=== PATIENT | male | born 1950 | race Caucasian/White ===

== ENCOUNTER 2018-06-08 16:07 | Observation (INO) ==
[2018-06-08] MEDS ORDERED: Nitroglycerin 0.4 MG TAB.SUBL SL ONE (16:11)
[2018-06-08] MEDS ORDERED: methylPREDNISolone 125 MG/2 ML VIAL IVP ONE (16:29)
[2018-06-08] MEDS ORDERED: Ipratropium/Albuterol Neb 3 ML IH ONE (16:29)
[2018-06-08 16:35] LABS: Basophils # 0.1 K/mcL (0.0-0.2); Basophils % 0.4 %; Eosinophils # 0.3 K/mcL (0.0-0.6); Eosinophils % 1.8 %; Hematocrit 45.5 % (37.5-50.1); Hemoglobin 16.3 g/dL (12.9-16.9); Immature Granulocytes % 0.5 % (0-4); Lymphocytes # 3.3 K/mcL (0.6-4.6); Lymphocytes % 21.5 %; Mean Corpuscular HGB Conc 35.8 g/dL (31.6-35.5); Mean Corpuscular Hemoglobin 36.1 pg (28.0-33.3); Mean Corpuscular Volume 100.9 fL (83.0-100.0); Monocytes # 2.1 K/mcL (0.0-1.3); Monocytes % 13.8 %; Neutrophils # 9.4 K/mcL (1.6-8.9); Platelet Count 150 K/mcL (140-400); Red Blood Count 4.51 M/mcL (4.19-5.50); Red Cell Distribution Width 14.4 % (11.5-14.5)
--- NOTE | 2018-06-08 16:37 | Emergency Department Note ---
Disposition Clinical Impression: Stable angina, COPD exacerbation, Hypoxia Chest pain Qualifiers: Chest pain type: chest pain on breathing Qualified Code(s): R07.1 - Chest pain on breathing Pneumonia Qualifiers: Pneumonia type: due to unspecified organism Laterality: right Lung location: upper lobe of lung Qualified Code(s): J18.1 - Lobar pneumonia, unspecified organism Disposition: Admitted As Inpatient Condition: Good Instructions: Angina (ED), Emphysema (ED), Community-acquired Pneumonia (ED), Chest Pain (ED) Referrals: Bonita Carter [Primary Care Provider] - Forms: ED Satisfaction Letter Time of Disposition: 17:00 (Dr Prasad accepted him for admission) Chest Pain HPI - General Chief Complaint: ED Chest Pain Stated Complaint: Chest pain Time Seen by Provider: 06/08/18 16:11 Source: patient, EMS, other Mode of arrival: ambulatory Limitations: no limitations Vital Signs Reviewed: Yes Nursing Notes Reviewed: Yes - History of Present Illness HPI Narrative: Patient is a pleasant 67-year-old male with past medical history significant for HTN, Dyslipidemia, tobacco abuse and COPD who is presenting to [facility] Emergency Room with a chief complaint off substernal and right-sided chest pain in the past 12 hours. Pain is rated 8-9 out of 10 and currently 4 out of 10 sharp heavy bleeding, and does not radiate to his arms. Patient has shortness of breath. He took 4 baby aspirin and went to the urgent care. Received call from the urgent care regarding his chest pain. EKG performed at the urgent care and revealed the PVC and no ST-T wave elevation or depression. Patient admits skmoking [id number] years and drink ETOH. Also denies street drugs and viagra. Patient denies any fever, chills or night sweats. Pt also denies any eye pain or visual disturbances. There is no sore throat, nasal drainages or facial congestion. There is no chest pain, palpitations or racing heart. Pt also denies any shortness of breath, cough or chest congestion. There is no abdominal pain, nausea, vomiting or diarrhea. There is no urgency, frequency or dysuria. There is no muskulo-skeletal pain, arthralgia or back pain. Patient also denies any rash, edema or pruritus. There is no neurological manifestations, no headache, no vertigo or weakness. The patient also denies any anxiety, depression, hallucinations and has no homicidal or suicidal ideations. There is no polyuria, polydipsia or recent weight change. There is no easy bruising or bleeding. Review of other systems is otherwise negative except above. Pt complaint: chest pain Onset (ago): hour(s) (12) Duration: gradually worsening Onset: during rest Pain Location: substernal, right chest Severity: moderate Severity scale (1-10): 4 Quality: heaviness - Related Data Home Medications Medication Instructions Recorded Confirmed Aspirin [Lo-Dose Aspirin EC] 81 mg PO DAILY 06/08/18 06/08/18 Atorvastatin [Lipitor] 20 mg PO HS 06/08/18 06/08/18 Folic Acid 1 mg PO DAILY 06/08/18 06/08/18 Leflunomide [Arava] 10 mg PO DAILY 06/08/18 06/08/18 Lisinopril [Zestril] 20 mg PO DAILY 06/08/18 06/08/18 Methotrexate [Otrexup] 7.5 mg PO QWEEK 06/08/18 06/08/18 Allergies Allergy/AdvReac Type Severity Reaction Status Date / Time No Known Allergies Allergy Verified 06/08/18 15:53 All systems ED: reviewed and negative except as stated. Review of Systems: As Per HPI Constitutional: Denies: fever, chills, weakness Eyes: Denies: eye pain, eye discharge ENT ED: Denies: ear pain, throat pain Cardiovascular: Reports: chest pain. Denies: palpitations, dyspnea on exertion Respiratory: Reports: dyspnea. Denies: cough, wheezes Gastrointestinal: Denies: abdominal pain, nausea, vomiting Genitourinary: Denies: urgency, dysuria, frequency Musculoskeletal: Denies: back pain, neck pain, joint swelling Chest Pain PMH - Past Medical History Medical history: Reports: arthritis, COPD, RA Psychiatric history: Reports: anxiety - Social History Smoking Status: Current every day smoker Alcohol use: Reports: heavy Drug use: Reports: marijuana Physical Exam - General Limitations: no limitations General appearance: alert, in no apparent distress - Head Head exam: atraumatic, normocephalic, normal inspection - Eye Eye exam: Present: normal appearance, PERRL, EOMI - Expanded Eye Exam Pupils: Left: reactive - ENT ENT exam: normal exam, normal oropharynx, mucous membranes moist - Expanded ENT Exam External ear exam: Present: normal external inspection Mouth exam: Present: normal external inspection Teeth exam: Present: normal inspection Throat exam: Present: normal inspection - Neck Neck exam: Present: normal inspection, full ROM, trachea midline - Chest Chest inspection: Present: normal inspection, symmetric chest wall rise - Respiratory Respiratory exam: Present: normal lung sounds bilaterally, other (Diminished air entry) - Cardiovascular Cardiovascular exam: Present: regular rate, normal rhythm, normal heart sounds - Abdominal Exam Abdominal exam: Present: soft, Non-Tender. Absent: tenderness, distention, guarding, rebound, rigidity - Extremities Exam Extremities exam: Present: normal inspection, full ROM. Absent: tenderness, pedal edema - Expanded Upper Extremity Exam Shoulder exam: Present: normal inspection, full ROM Arm exam: Present: normal inspection, full ROM Elbow exam: Present: normal inspection, full ROM Forearm/Wrist exam: Present: normal inspection, full ROM Hand exam: Present: normal inspection, full ROM Vascular exam: Normal: capillary refill, radial pulse - Expanded Lower Extremity Exam Hip/Pelvis exam: Present: normal inspection, full ROM Upper leg exam: Present: normal inspection, full ROM Knee exam: Present: normal inspection, full ROM Lower leg exam: Present: normal inspection, full ROM Ankle exam: Present: normal inspection, full ROM Foot/toe exam: Present: normal inspection, full ROM Neurovascular/Tendon exam: Absent: motor deficit, sensory deficit, tendon deficit - Back Exam Back exam: Present: normal inspection, full ROM. Absent: tenderness - Neurological Exam Neurological exam: Present: alert, oriented X3 - Expanded Neurological Exam Patient oriented to: Present: person, place, time Coma Scale Eye Opening: Spontaneous Coma Scale Motor Response: Obeys Commands Coma Scale Verbal Response: Oriented Coma Scale Total: 15 - Psychiatric Psychiatric exam: Present: normal affect, normal mood - Skin Skin exam: Present: warm, dry, intact, normal color Course Vital Signs Temperature 98.4 F 06/08/18 16:08 Pulse Rate 98 06/08/18 16:08 Respiratory Rate 18 06/08/18 16:08 Blood Pressure 122/82 06/08/18 16:08 O2 Sat by Pulse Oximetry 95 06/08/18 16:08 Temperature 98.4 F 06/08/18 16:08 Pulse Rate 87 06/08/18 16:48 Respiratory Rate 16 06/08/18 16:48 Blood Pressure 113/82 06/08/18 16:48 O2 Sat by Pulse Oximetry 96 06/08/18 16:48 Oxygen Delivery Oxygen Delivery Room Air Chest Pain - MDM Narrative Medical decision making narrative: On admission, pt seems distressed and became hypoxic, he was placed on 2 L NC and given one nitro - Differential Diagnosis Likely: fracture of rib, st elevation myocardial infraction - Medical Records Medical records reviewed: Yes I reviewed the patient's medical records. - Lab Data Lab results reviewed: Yes I reviewed the patient's lab results. Result diagrams: 06/08/18 16:26 06/08/18 16:26 Lab Results 06/08/18 06/08/18 06/08/18 Range/Units 16:26 16:26 16:26 WBC (4.3-11.1) K/mcL RBC (4.19-5.50) M/mcL Hgb (12.9-16.9) g/dL Hct (37.5-50.1) % MCV (83.0-100.0) fL MCH (28.0-33.3) pg MCHC (31.6-35.5) g/dL RDW (11.5-14.5) % Plt Count (140-400) K/mcL MPV (9.4-12.4) fL Immature Gran % (0-4) % Seg Neutrophils % % Lymphocytes % % Monocytes % % Eosinophils % % Basophils % % Neutrophils # (1.6-8.9) K/mcL Lymphocytes # (0.6-4.6) K/mcL Monocytes # (0.0-1.3) K/mcL Eosinophils # (0.0-0.6) K/mcL Basophils # (0.0-0.2) K/mcL PT 11.8 (9.4-12.1) Seconds INR 1.0 APTT 31.4 (26.0-36.0) Seconds D-Dimer 252 (0-500) ng/mLFEU Sodium (136-145) mEq/L Potassium (3.5-5.1) mEq/L Chloride (98-107) mEq/L Carbon Dioxide (23-29) mEq/L BUN (8-23) mg/dL Creatinine (0.70-1.30) mg/dL Est GFR ( Amer) (> 60) Est GFR (Non-Af Amer) (> 60) BUN/Creatinine Ratio (6-26) Glucose (70-105) mg/dL Calculated Osmolality (280-300) Calcium (8.6-10.3) mg/dL Total Bilirubin 1.4 H (0.3-1.0) mg/dL Direct Bilirubin 0.2 (0.0-0.2) mg/dL Indirect Bilirubin 1.2 (0.0-1.2) mg/dL AST 21 (13-39) Units/L ALT 24 (7-52) Units/L Alkaline Phosphatase 106 H (34-104) Units/L Troponin I (< 0.04) ng/mL B-Natriuretic Peptide 58 (Less than 100) pg/mL Serum Total Protein 6.8 (6.4-8.9) g/dL Albumin 4.2 (3.5-5.7) g/dL Globulin 2.6 (2.4-3.5) g/dL Albumin/Globulin Ratio 1.6 (1.1-2.2) Lipase (11-82) Units/L 06/08/18 06/08/18 06/08/18 Range/Units 16:26 16:26 16:26 WBC 15.2 H (4.3-11.1) K/mcL RBC 4.51 (4.19-5.50) M/mcL Hgb 16.3 (12.9-16.9) g/dL Hct 45.5 (37.5-50.1) % MCV 100.9 H (83.0-100.0) fL MCH 36.1 H (28.0-33.3) pg MCHC 35.8 H (31.6-35.5) g/dL RDW 14.4 (11.5-14.5) % Plt Count 150 (140-400) K/mcL MPV 10.0 (9.4-12.4) fL Immature Gran % 0.5 (0-4) % Seg Neutrophils % 62.0 % Lymphocytes % 21.5 % Monocytes % 13.8 % Eosinophils % 1.8 % Basophils % 0.4 % Neutrophils # 9.4 H (1.6-8.9) K/mcL Lymphocytes # 3.3 (0.6-4.6) K/mcL Monocytes # 2.1 H (0.0-1.3) K/mcL Eosinophils # 0.3 (0.0-0.6) K/mcL Basophils # 0.1 (0.0-0.2) K/mcL PT (9.4-12.1) Seconds INR APTT (26.0-36.0) Seconds D-Dimer (0-500) ng/mLFEU Sodium 136 (136-145) mEq/L Potassium 4.2 (3.5-5.1) mEq/L Chloride 105 (98-107) mEq/L Carbon Dioxide 25 (23-29) mEq/L BUN 12 (8-23) mg/dL Creatinine 0.89 (0.70-1.30) mg/dL Est GFR ( Amer) > 60 (> 60) Est GFR (Non-Af Amer) > 60 (> 60) BUN/Creatinine Ratio 13 (6-26) Glucose 96 (70-105) mg/dL Calculated Osmolality 282 (280-300) Calcium 9.4 (8.6-10.3) mg/dL Total Bilirubin (0.3-1.0) mg/dL Direct Bilirubin (0.0-0.2) mg/dL Indirect Bilirubin (0.0-1.2) mg/dL AST (13-39) Units/L ALT (7-52) Units/L Alkaline Phosphatase (34-104) Units/L Troponin I < 0.03 (< 0.04) ng/mL B-Natriuretic Peptide (Less than 100) pg/mL Serum Total Protein (6.4-8.9) g/dL Albumin (3.5-5.7) g/dL Globulin (2.4-3.5) g/dL Albumin/Globulin Ratio (1.1-2.2) Lipase 29 (11-82) Units/L - Radiology Data Radiology results reviewed: Yes I reviewed the patient's radiology results. - EKG Data EKG attestation: Yes I reviewed and interpreted this EKG. EKG shows normal: sinus rhythm Rate: normal [place]/QRS: normal When compared to previous EKG there are: no significant changes (compared with 03/11/16) Heart Score - Score History: Moderately Suspicious EKG: Non Specific repolarisation Disturbance Age: Greater than 65 Risk Factors: Equal/Greater than 3 risk factor or history of atherosclerotic disease Troponin: Less than normal limit HEART Score Total: 6
[2018-06-08 16:43] LABS: Prothrombin Time 11.8 Seconds (9.4-12.1)
[2018-06-08 16:46] LABS: Activated Partial Thrombo Time 31.4 Seconds (26.0-36.0)
[2018-06-08 16:53] LABS: Albumin 4.2 g/dL (3.5-5.7); Albumin/Globulin Ratio 1.6 (1.1-2.2); Bilirubin,Direct 0.2 mg/dL (0.0-0.2); Bilirubin,Indirect 1.2 mg/dL (0.0-1.2); Bilirubin,Total 1.4 mg/dL (0.3-1.0); Globulin 2.6 g/dL (2.4-3.5); Total Protein 6.8 g/dL (6.4-8.9)
[2018-06-08 16:54] LABS: BUN/Creatinine Ratio 13 (6-26); Blood Urea Nitrogen 12 mg/dL (8-23); Calcium 9.4 mg/dL (8.6-10.3); Carbon Dioxide 25 mEq/L (23-29); Chloride 105 mEq/L (98-107); Glucose 96 mg/dL (70-105); Osmolality,Calculated 282 (280-300); Potassium 4.2 mEq/L (3.5-5.1); Sodium 136 mEq/L (136-145); eGFR For Non-African Americans > 60 (> 60)
[2018-06-08 16:55] LABS: Troponin I < 0.03 ng/mL (< 0.04)
[2018-06-08] MEDS ORDERED: cefTRIAXone 2,000 MG in Water for inj. (sterile) 20 ML 20 ML IVP ONE (17:01)
[2018-06-08] MEDS ORDERED: Naloxone 0.4 MG/ML INJ IVP PRN ×2 (17:12→17:41)
[2018-06-08] MEDS: Aspirin Enteric Coated 81 MG Tablet PO SCH (18:27)
[2018-06-08] MEDS: Folic Acid 1 MG TABLET PO SCH (18:27)
[2018-06-08 18:42] LABS: Bilirubin,Urine Negative (Negative); Blood,Urine Negative (Negative); Clarity,Urine Clear (Clear); Color,Urine Yellow (Yellow); Glucose,Urine (UA) Normal (Normal); Ketones,Urine Negative (Negative); Leukocyte Esterase,Urine Negative (Negative); Nitrite,Urine Negative (Negative); PH,Urine 6.5 pH Units (5.0-8.0); Protein,Urine Negative (Neg-Trace); Urobilinogen,Urine Normal (Normal)
[2018-06-08 18:53] LABS: Amphetamine Screen,Urine Negative ng/mL (Cutoff=1000); Barbiturate Screen,Urine Negative ng/mL (Cutoff=200); Benzodiazepines Screen,Urine Negative ng/mL (Cutoff=200); Cannabinoid Screen,Urine Positive ng/mL (Cutoff = 50); Cocaine Screen,Urine Negative ng/mL (Cutoff= 300); Opiate Screen,Urine Negative ng/mL (Cutoff=300); Phencyclidine Screen,Urine Negative ng/mL (Cutoff=25)
[2018-06-08] MEDS ORDERED: *HR* OxyCODONE/APAP 5/325 TABLET PO PRN (19:12)
[2018-06-08] MEDS ORDERED: Ipratropium/Albuterol Neb 3 ML IH PRN (19:14)
[2018-06-09 05:33] LABS: Basophils % 0.2 %; Hematocrit 45.2 % (37.5-50.1); Hemoglobin 16.1 g/dL (12.9-16.9); Immature Granulocytes % 0.6 % (0-4); Lymphocytes # 1.4 K/mcL (0.6-4.6); Lymphocytes % 12.2 %; Mean Corpuscular HGB Conc 35.6 g/dL (31.6-35.5); Mean Corpuscular Hemoglobin 35.8 pg (28.0-33.3); Mean Corpuscular Volume 100.4 fL (83.0-100.0); Mean Platelet Volume 9.9 fL (9.4-12.4); Monocytes # 0.9 K/mcL (0.0-1.3); Monocytes % 8.1 %; Neutrophils # 9.1 K/mcL (1.6-8.9); Platelet Count 132 K/mcL (140-400); Segmented Neutrophils % 78.9 %
[2018-06-09 05:43] LABS: INR 1.1; Prothrombin Time 12.2 Seconds (9.4-12.1)
[2018-06-09 05:45] LABS: Activated Partial Thrombo Time 29.5 Seconds (26.0-36.0)
[2018-06-09 05:55] LABS: Alanine Aminotransferase 21 Units/L (7-52); Albumin 4.1 g/dL (3.5-5.7); Albumin/Globulin Ratio 1.6 (1.1-2.2); Alkaline Phosphatase 102 Units/L (34-104); Aspartate Amino Transferase 18 Units/L (13-39); BUN/Creatinine Ratio 15 (6-26); Blood Urea Nitrogen 13 mg/dL (8-23); Calcium 9.5 mg/dL (8.6-10.3); Carbon Dioxide 23 mEq/L (23-29); Chloride 105 mEq/L (98-107); Chol/HDL Ratio 1.9 (0-4.9); Cholesterol 129 mg/dL (< 200); Globulin 2.6 g/dL (2.4-3.5); Glucose 145 mg/dL (70-105); HDL Cholesterol 67 mg/dL (40-59); LDL Cholesterol,Calculated 54 mg/dL (0-99); Osmolality,Calculated 287 (280-300); Phosphorous 3.8 mg/dL (2.7-4.5); Potassium 4.6 mEq/L (3.5-5.1); Sodium 137 mEq/L (136-145); Total Protein 6.7 g/dL (6.4-8.9); Triglycerides 40 mg/dL (< 150); eGFR For Non-African Americans > 60 (> 60)
[2018-06-09] MEDS ORDERED: *HR* Methotrexate 2.5 MG TABLET PO SCH (09:00)
[2018-06-09] MEDS ORDERED: Lisinopril 20 MG TABLET PO SCH (09:00)
[2018-06-09] MEDS ORDERED: Leflunomide [Arava] 10 MG PO SCH (09:00)
[2018-06-09] MEDS: Folic Acid 1 MG TABLET PO SCH (09:38)
[2018-06-09] MEDS: Aspirin Enteric Coated 81 MG Tablet PO SCH (09:38)
[2018-06-09 10:05] VITALS: BP 115/72
--- NOTE | 2018-06-09 10:30 | Internal Med History&Physical ---
Date of Encounter: 06/09/18 Time of Encounter: 10:05 Assessment and Plan (1) Pneumonia Current visit: Yes Status: Acute He was given Rocephin and Solu-Medrol in emergency room. He denies cough or dyspnea at present time. Qualifiers: Pneumonia type: due to unspecified organism Laterality: right Lung location: upper lobe of lung Qualified Code(s): J18.1 - Lobar pneumonia, unspecified organism (2) COPD exacerbation Current visit: Yes Status: Acute Continue antibiotics. Room air oximetry will be checked prior to discharge on 6 minute walk. (3) Chest pain Current visit: Yes Status: Acute Doubt myocardial ischemia. Repeat cardiac enzymes were ordered through emergency room. Qualifiers: Chest pain type: chest pain on breathing Qualified Code(s): R07.1 - Chest pain on breathing; R07.81 - Pleurodynia (4) Hypertension Current visit: Yes Status: Chronic Continue lisinopril. Qualifiers: Hypertension type: essential hypertension Qualified Code(s): I10 - Essential (primary) hypertension (5) PVCs (premature ventricular contractions) Current visit: Yes Status: Acute Asymptomatic. Internal Medicine - H&P: HPI Chief complaint: Chest discomfort Admitted From: Emergency Dept Plans for Post Hospital Care: Home History of present illness: Mr. Phipps is a 67 year old male came to emergency room stating he had onset of discomfort in his right chest through the evening of June 07. There was pain on movement. There is no cough or dyspnea associated. The pain persisted for several hours he decided to come to emergency room. He was evaluated and found to have probable right lung pneumonia. He was admitted to [facility] floor for ongoing care needs. He states the pain has now resolved. He reports previous pneumonia several years ago. Respiratory history is significant for smoking since age 18 up to one and a half packs per day. He has been diagnosed with COPD from PFTs several years ago. He does not use home oxygen. Past Med Surg Social Fam HX - Past Medical History Medical history: arthritis, COPD, RA Additional medical history: cardiomegaly Psychiatric history: anxiety - Social History Smoking Status: Current every day smoker Packs per day: 1 Smokeless Tobacco Status: No Alcohol use: heavy Drug use: marijuana Internal Medicine - H&P: Meds Aspirin [Lo-Dose Aspirin EC] 81 mg PO DAILY 06/08/18 [History] Atorvastatin [Lipitor] 20 mg PO HS 06/08/18 [History] Folic Acid 1 mg PO DAILY 06/08/18 [History] Leflunomide [Arava] 10 mg PO DAILY 06/08/18 [History] Lisinopril [Zestril] 20 mg PO DAILY 06/08/18 [History] Methotrexate [Otrexup] 7.5 mg PO QWEEK 06/08/18 [History] 3 Allergy/AdvReac Type Severity Reaction Status Date / Time No Known Allergies Allergy Verified 06/08/18 15:53 All Systems PM: A 10-system review of systems was performed and is negative for pertinent findings except as documented above in the HPI. Review of systems: Gen.: He states his weight is stable the past few months Cardiovascular: He has history of hypertension but denies MS heart failure angina DVT or pulmonary embolus Respiratory: As per history of present illness GI: Denies disorders of his liver gallbladder or exocrine pancreas : He denies hematuria dysuria kidney stones Neurologic: He denies large distribution strokes or seizures. Endocrine: He has hyperlipidemia but denies diabetes or thyroid disease Hematology/oncology: He denies blood disorders cancers or anemia Psychiatric: He has feelings of anxiety. He denies depression or other mental health issues. Musko skeletal: He has DJD and rheumatoid arthritis. He denies gout or other bone joint or muscle disorders. - Constitutional Vitals: Temp Pulse Resp BP Pulse Ox 97.7 F 78 17 115/72 91 06/09/18 10:03 06/09/18 10:03 06/09/18 10:03 06/09/18 10:03 06/09/18 10:03 Exam: Gen.: He is a well-developed lean male sitting comfortably on the side of bed who appears in no acute distress. He denies significant pain or dyspnea at present time. HEENT: Head is atraumatic and normocephalic. Eyes: EOMI. There is no scleral icterus. Mouth: Mucosa is moist. Neck: Supple and nontender. There is no thyromegaly or adenopathy noted. Heart: Regular without murmurs or gallops. Occasional ectopic beats are heard. These are asymptomatic. Lungs: No wheezes or crackles heard. He has diminished breath sounds diffusely. No egophony is heard. Abdomen: Soft and nontender. No masses or guarding are noted. Extremities: There is no cyanosis edema or clubbing noted. Dorsalis pedis and posttibial pulses are 1-2 over 2 bilaterally. Neurologic: Mental status: He is talkative and a good historian. Cranial nerves : Smile is symmetric. Forehead wrinkles bilaterally. Tongue protrudes midline. EOMI. Motor: There is no pronator drift. Cerebellar: Finger to nose is intact bilaterally. Skin: Warm and dry Internal Med - H&P Results - Labs CBC & Chem 7: 06/09/18 05:00 06/09/18 05:00 Labs: Short CBC 06/09/18 Range/Units 05:00 WBC 11.5 H (4.3-11.1) K/mcL Hgb 16.1 (12.9-16.9) g/dL Hct 45.2 (37.5-50.1) % Plt Count 132 L (140-400) K/mcL Neutrophils # 9.1 H (1.6-8.9) K/mcL BMP 06/09/18 05:00 Sodium 137 Potassium 4.6 Chloride 105 Carbon Dioxide 23 BUN 13 Creatinine 0.85 Glucose 145 H Calcium 9.5 Cardiac Enzymes 06/08/18 06/09/18 Range/Units 22:24 05:00 Troponin I < 0.03 < 0.03 (< 0.04) ng/mL Liver Function 06/09/18 Range/Units 05:00 Total Bilirubin 1.0 (0.3-1.0) mg/dL AST 18 (13-39) Units/L ALT 21 (7-52) Units/L Alkaline Phosphatase 102 (34-104) Units/L Albumin 4.1 (3.5-5.7) g/dL Urine 06/08/18 Range/Units 18:16 Urine Color Yellow (Yellow) Urine Clarity Clear (Clear) Urine pH 6.5 (5.0-8.0) pH Units Ur Specific [place] 1.020 (1.010-1.025) Urine Protein Negative (Neg-Trace) mg/dL Urine Glucose (UA) Normal (Normal) mg/dL
--- NOTE | 2018-06-09 11:08 | Discharge Summary ---
Date of Encounter: 06/09/18 Time of Encounter: 10:05 - Discharge Diagnosis (1) Pneumonia Priority: Primary Status: Acute Qualifiers: Pneumonia type: due to unspecified organism Laterality: right Lung location: upper lobe of lung Qualified Code(s): J18.1 - Lobar pneumonia, unspecified organism (2) COPD exacerbation Priority: Secondary Status: Acute (3) Chest pain Priority: Secondary Status: Resolved Qualifiers: Chest pain type: chest pain on breathing Qualified Code(s): R07.1 - Chest pain on breathing; R07.81 - Pleurodynia (4) Hypertension Priority: Secondary Status: Chronic Qualifiers: Hypertension type: essential hypertension Qualified Code(s): I10 - Essential (primary) hypertension (5) PVCs (premature ventricular contractions) Priority: Secondary Status: Acute (6) Macrocytosis Priority: Secondary Status: Chronic Hospital course: Mr. Phipps is a 67 year old male who came to emergency room stating he had onset of discomfort in his right chest the evening of June 07. There was pain on movement. There was no cough or dyspnea associated. The pain persisted for several hours so he decided to come to emergency room. He was evaluated and found to have probable right lung pneumonia. He was admitted to [facility] for ongoing care needs. Initial orders were written by the emergency room physician. I saw him on June 09 and performed the history physical and discharge. He was given Rocephin and Solu-Medrol in emergency room. By the time I saw him he felt back to his baseline and denied chest pain. He denies significant dyspnea. Follow- up lab work showed WBC improved to 11.5 with 78.9% segs. He will continue with antibiotic and probiotic for 4 additional days at discharge. Room air oximetry will be checked on 6 minute walk prior to discharge to see if home oxygen as needed. I encouraged him to become a nonsmoker. Review of past labs show macrocytosis present since February 2016. I note he is on methotrexate. His PCP can do appropriate workup for macrocytosis to verify no additional cause is present. He had frequent PVCs on telemetry. These were asymptomatic. His PCP can monitor and do further workup as indicated. Blood pressure was normal to borderline low during hospitalization. His PCP can monitor this and adjust antihypertensive medication dose as needed. He will be discharged home and follow with his PCP within 1 week. - Time Spent with Patient Total time spent providing and/or coordinating discharge services: - Discharge Medications Prescriptions: Cefuroxime PO [Ceftin] 500 mg PO Q12HR #8 tablet Azithromycin [Zithromax] 250 mg PO DAILY #4 tablet Lactobacillus [Culturelle] 1 each PO BID #8 cap.[email or web address] Home Medications: Aspirin [Lo-Dose Aspirin EC] 81 mg PO DAILY 06/08/18 [History] Atorvastatin [Lipitor] 20 mg PO HS 06/08/18 [History] Folic Acid 1 mg PO DAILY 06/08/18 [History] Leflunomide [Arava] 10 mg PO DAILY 06/08/18 [History] Lisinopril [Zestril] 20 mg PO DAILY 06/08/18 [History] Methotrexate [Otrexup] 7.5 mg PO QWEEK 06/08/18 [History] Azithromycin [Zithromax] 250 mg PO DAILY #4 tablet 06/09/18 [Rx] Cefuroxime PO [Ceftin] 500 mg PO Q12HR #8 tablet 06/09/18 [Rx] Lactobacillus [Culturelle] 1 each PO BID #8 cap.[email or web address] 06/09/18 [Rx] Allergies/Adverse Reactions: 3 Allergy/AdvReac Type Severity Reaction Status Date / Time No Known Allergies Allergy Verified 06/08/18 15:53 Date of admission: 06/08/18 17:18 Primary care physician: Bonita Carter - Constitutional Vitals: Temp Pulse Resp BP Pulse Ox 97.7 F 78 17 115/72 93 06/09/18 10:03 06/09/18 10:03 06/09/18 10:03 06/09/18 10:03 06/09/18 10:52 - Patient Status Disposition: Home, Self-Care Condition: Good - Discharge Instructions Follow Up With: Bonita Carter [Primary Care Provider] - 1 week - Diet and Activity Activity: resume usual activities as tolerated Diet: advance to your usual diet
--- NOTE | 2018-06-13 11:45 | Electrocardiograph Report ---
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
== END 2018-06-09 12:02 | disposition home or self-care (01) ==
LOC: EMEROOPIK 16:07 → INPPIK 16:07
PROVIDERS: ADMIT Internal Medicine; ATTEND Internal Medicine